=== PATIENT | female | born 2000 | race Caucasian/White ===

== ENCOUNTER 2018-05-03 17:45 | Emergency (ER) | payer OTHER, BC ==
[~2018-05-03] VITALS: Ht 154.9 cm; Wt 65.9 kg
[2018-05-03 17:55] VITALS: TEMP 99.2
[2018-05-03] MEDS ORDERED: ZOLOFT 25MG25 MG PO (18:13)
[2018-05-03] MEDS ORDERED: TAYTULLA 1 MG-1 EACH PO (18:14)
[2018-05-03] MEDS ORDERED: ATARAX 25MG25 MG/TAB PO (18:14)
[2018-05-03 18:54] VITALS: BP 110/75; PULSE 80
== END 2018-05-03 18:54 | disposition home or self-care (01) ==
LOC: COL.ER 17:45
DX: S06.0X0A Concussion without loss of consciousness, initial encounter (principal); F41.9 Anxiety disorder, unspecified; V43.02XA Car driver injured in collision with other type car in nontraffic accident, initial encounter; Y92.481 Parking lot as the place of occurrence of the external cause